=== PATIENT | female | born 1960 | race Caucasian/White ===

== ENCOUNTER 2017-02-08 14:52 | Emergency (ER) | payer MEDICAID ==
--- NOTE | 2017-02-08 16:03 | EDM.PDOC ---
ED HPI GENERAL MEDICAL PROBLEM - General Chief Complaint: Respiratory Problem Stated Complaint: SHORTNESS OF BREATH Time Seen by Provider: 02/08/17 15:40 Source of Information: Reports: Patient History Limitations: Reports: No Limitations - History of Present Illness INITIAL COMMENTS - FREE TEXT/NARRATIVE: 56-year-old female with severe emphysema has been without oxygen for the past for 5 days. She becomes somnolent when she uses oxygen. She has had several checks of the clinic by her primary providers and has a pulmonology consultation coming up on 26 February. No fevers or chills. She continues to smoke. She is basically in here to get blood gases which aren't able to be drawn at the clinic. She did use 1 L of oxygen overnight last night. Onset: Unknown/Unsure Severity: Moderate Associated Symptoms: Reports: Cough, Shortness of Breath. Denies: Fever/Chills , Headaches, Nausea/Vomiting, Weakness denies Pain Score (Numeric/FACES): 0 - Related Data Allergies Allergy/AdvReac Type Severity Reaction Status Date / Time No Known Allergies Allergy Verified 06/07/16 07:50 Home Meds: Home Meds NK [No Known Home Meds] 02/08/17 [History] Past Medical History Cardiovascular History: Reports: Other (See Below) Other Cardiovascular History: bilateral lower extremity edema. Respiratory History: Reports: Other (See Below) Other Respiratory History: panlobular emphysema, Hypoxia Other Gastrointestinal History: colon polyp Genitourinary History: Reports: Other (See Below) Other Genitourinary History: proteinuria Psychiatric History: Reports: Other (See Below) Other Psychiatric History: stress Endocrine/Metabolic History: Reports: Other (See Below) Other Endocrine/Metabolic History: polycthemia - Infectious Disease History Infectious Disease History: Reports: Chicken Pox - Past Surgical History GI Surgical History: Reports: Colonoscopy ED ROS GENERAL - Review of Systems Review Of Systems: See Below Constitutional: Reports: Weakness. Denies: Fever, Chills, Malaise HEENT: Reports: No Symptoms Respiratory: Reports: Shortness of Breath, Cough Cardiovascular: Denies: Chest Pain, Palpitations GI/Abdominal: Denies: Abdominal Pain, Nausea, Vomiting : Reports: No Symptoms Musculoskeletal: Reports: No Symptoms Neurological: Denies: Headache ED EXAM, GENERAL - Physical Exam Exam: See Below Exam Limited By: No Limitations General Appearance: Alert, No Apparent Distress, Anxious (Patient is very talkative, anxious, almost hypomanic) Respiratory/Chest: No Respiratory Distress, Lungs Clear, Decreased Breath Sounds (Diffuse decreased breath sounds but present to the bases bilaterally) Cardiovascular: Regular Rate, Rhythm, Tachycardia GI/Abdominal: Non-Tender Extremities: No Pedal Edema Neurological: Alert, Oriented Psychiatric: Anxious Skin Exam: Warm, Dry, Other (Some ruddiness to the distal extremities likely from chronic hypoxia) Course - Vital Signs Last Recorded V/S: Last Vital Signs Temp 97.5 F 02/08/17 16:45 Pulse 109 H 02/08/17 16:45 Resp 16 02/08/17 16:45 BP 136/92 H 02/08/17 16:45 Pulse Ox 89 L 02/08/17 16:45 - Orders/Labs/Meds Labs: Laboratory Tests 02/08/17 02/08/17 Range/Units 16:12 16:12 Puncture Site Rt.radial ABG pH 7.380 (7.350-7.450) ABG pCO2 52.7 H (35.0-42.0) mmHg ABG pO2 51.9 L (75.0-100.0) mmHg ABG HCO3 30.5 H (22.0-26.0) mmol/L ABG Total CO2 25.5 H (21.0-25.0) mmol/L ABG O2 Saturation 88.0 L (95.0-98.0) % ABG O2 Content 20.5 (15.0-23.0) %vol ABG Base Excess 4.1 mm/L ABG Hemoglobin 18.2 H (12.0-16.0) g/dL ABG Oxyhemoglobin 80.6 % ABG Carboxyhemoglobin 7.8 H (0.0-1.6) % ABG Methemoglobin 0.6 % Ronak Test Passed O2 Delivery Device Room air TSH, Ultra Sensitive 1.130 (0.358-3.740) uIU/mL - Re-Assessments/Exams Free Text/Narrative Re-Assessment/Exam: 02/10/17 07:12 ABGs were obtained on room air, O2 was 88, PCO2 52.7. PH was normal. She is a chronic CO2 retainer. Her options were discussed with her and her family for over 30 minutes. She will resume 1 L of oxygen overnight, will see pulmonology in 2 weeks as scheduled and return if she feels she is worsening. I strongly encouraged her to decrease her smoking and resume her Spiriva and other pulmonary medications as directed. Departure - Departure Time of Disposition: 16:55 Disposition: Home, Self-Care 01 Condition: Fair Clinical Impression: Emphysema lung Qualifiers: Emphysema type: panlobular Qualified Code(s): J43.1 - Panlobular emphysema - Discharge Information Instructions: Chronic Obstructive Pulmonary Disease Exacerbation, [id number] Referrals: Jose Linder MD [Primary Care Provider] - Forms: ED Department Discharge Care Plan Goals: Continue using low levels of oxygen supplementation, try to decrease smoking, and I would recommend your pulmonary medications as prescribed. Return if worsening or concerns.
[2017-02-08 16:53] VITALS: BP 136/92
== END 2017-02-08 16:54 | disposition home or self-care (01) ==
LOC: JP.ED 14:52
DX: J43.1 Panlobular emphysema (principal)
CPT/HCPCS: 36600; 82803; 84443; 99284; 99285

== ENCOUNTER 2017-03-22 20:14 | Emergency (ER) | payer MEDICAID ==
--- NOTE | 2017-03-22 21:45 | EDM.PDOC ---
<Aaron Mata - Last Filed: 03/23/17 06:50> ED HPI GENERAL MEDICAL PROBLEM - General Chief Complaint: General Stated Complaint: O2 DOWN/ NOT MAKING SENSE Time Seen by Provider: 03/22/17 21:00 Source of Information: Reports: Patient, Family (Sister daughter and other family members), Old Records, RN Notes Reviewed History Limitations: Reports: Altered Mental Status - History of Present Illness INITIAL COMMENTS - FREE TEXT/NARRATIVE: Brought in by sister, but other family members have also been with her today including both her son and daughter in more distant relatives Chief complaint Altered behavior History of present illness 56-year-old female who lives alone with her dog, history of COPD and emphysema and has been prescribed oxygen for home use Family members became increasing concerned over the last couple of months since 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 She's been largely remaining by herself , and her behavior has deteriorated. She is in particular showing very confusing behavior which has gotten worse today. There is also been significant weight loss and patient admits that she has not been eating and drinking as much. Patient makes a number of nonsensical statements when asked about why she doesn' t use her oxygen or why she is here. Family members report that she's been refusing to use her oxygen because she believes that she is 100%. She states that she's been talking to her father was been for a year, she' s been inattentive when people are speaking to her, unaware that they are talking to her, slow to respond at times. She's gone out to buy cigarettes and not remember that she had gone out. She locked her dog in the car today and denied this happened and was unaware that the dog was out of the house. She makes some statements that she is challenging the oxygen and also that she' s been for 3 days. No known psychiatric history in her or the family She has been known to use marijuana but no other drugs. She's not eaten for several days and has not days for at least 3 days. According to her sister who probably has the closest connection to her, she believes the patient's behavior has deteriorated since April of last year. She has been largely noncommunicative with her son,, "drove them away", strongly objected to his wedding which happened last - Related Data Allergies Allergy/AdvReac Type Severity Reaction Status Date / Time coconut Allergy Cannot Verified 03/22/17 22:51 Remember levofloxacin Allergy Cannot Verified 03/22/17 22:51 Remember Home Meds: Home Meds Albuterol Sulfate [Albuterol Sulfate] 3 ml NEB Q4H PRN 03/22/17 [History] Albuterol Sulfate [Ventolin Hfa] 1 - 2 puff INH Q4H PRN 03/22/17 [History] Furosemide 1 tab PO DAILY 03/22/17 [History] Mometasone/Formoterol [Dulera 200-5 MCG] 2 puff INH BID 03/22/17 [History] Tiotropium [Spiriva Handihaler] 1 cap INH DAILY 03/22/17 [History] Past Medical History Cardiovascular History: Reports: Other (See Below) Other Cardiovascular History: bilateral lower extremity edema. 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: Psychiatric History: Reports: Other (See Below) Other Psychiatric History: stress Endocrine/Metabolic History: Reports: Other (See Below) Other Endocrine/Metabolic History: polycthemia - Infectious Disease History Infectious Disease History: Reports: Chicken Pox - Past Surgical History GI Surgical History: Reports: Colonoscopy Female Surgical History: Reports: Section (twice), Other (See Below ) (2 children by in vitro fertilization) Social & Family History - Tobacco Use Smoking Status *Q: Heavy Tobacco Smoker Years of Tobacco use: 40 Packs/Tins Daily: 1 Used Tobacco, but Quit: No - Caffeine Use Caffeine Use: Reports: Coffee - Recreational Drug Use Recreational Drug Use: Yes Recreational Drug Type: Reports: Marijuana/Hashish ED ROS GENERAL - Review of Systems Review Of Systems: Unable To Obtain (Due to altered behavior and inconsistent answers sometimes saying she has pain then denying it) ED EXAM, GENERAL - Physical Exam Exam: See Below Exam Limited By: Altered Mental Status General Appearance: Alert, Moderate Distress (Mostly concerned that she wants to leave), Other (Sandeep disheveled with strong body odor present, she is tachycardic at 134, no difficulty speaking or breathing, afebrile, O2 saturation 87-88% on room air, appears cachetic) Eye Exam: Bilateral Eye: EOMI, Normal Inspection Ears: Normal External Exam Nose: Normal Inspection Throat/Mouth: Normal Voice, Other (Dry mouth) Head: Atraumatic Neck: Normal Inspection Respiratory/Chest: No Respiratory Distress, Lungs Clear, Normal Breath Sounds, No Accessory Muscle Use Cardiovascular: Regular Rate, Rhythm, No Murmur, Tachycardia GI/Abdominal: Normal Bowel Sounds, Soft, Non-Tender Extremities: Normal Inspection, Normal Capillary Refill. No: Pedal Edema Neurological: Alert, No Motor/Sensory Deficits, Memory Loss Recent Events, Other (Initially disoriented to place and time) Psychiatric: Flat Affect, Other (Responses are sometimes delayed, patient appears agitated and restless, limited comprehension) Skin Exam: Warm, Dry, Normal Color, No Rash Lymphatic: No Adenopathy Course - Vital Signs Last Recorded V/S: Last Vital Signs Temp 99.1 F 03/22/17 20:24 Pulse 110 H 03/22/17 23:01 Resp 20 03/22/17 23:01 BP 129/79 03/22/17 23:01 Pulse Ox 90 L 03/22/17 23:02 - Orders/Labs/Meds Labs: Laboratory Tests 03/22/17 03/22/17 03/22/17 Range/Units 21:14 21:14 21:14 WBC 6.1 (4.5-11.0) K/uL RBC 6.58 H (3.30-5.50) M/uL Hgb 19.1 H* (12.0-15.0) g/dL Hct 60.1 H (36.0-48.0) % MCV 91 (80-98) fL MCH 29 (27-31) pg MCHC 32 (32-36) % Plt Count 199 (150-400) K/uL Sodium 138 L (140-148) mmol/L Potassium 4.2 (3.6-5.2) mmol/L Chloride 101 (100-108) mmol/L Carbon Dioxide 30 (21-32) mmol/L Anion Gap 11.2 (5.0-14.0) mmol/L BUN 10 (7-18) mg/dL Creatinine 0.6 (0.6-1.0) mg/dL Est Cr Clr Drug Dosing 79.94 mL/min Estimated GFR (MDRD) > 60 (>60) Glucose 102 (74-106) mg/dL Calcium 9.2 (8.5-10.1) mg/dL Total Bilirubin 0.9 (0.2-1.0) mg/dL AST 14 L (15-37) U/L ALT 19 (12-78) U/L Alkaline Phosphatase 70 (46-116) U/L Total Protein 6.7 (6.4-8.2) g/dL Albumin 3.6 (3.4-5.0) g/dL Globulin 3.1 (2.3-3.5) g/dL Albumin/Globulin Ratio 1.2 (1.2-2.2) TSH, Ultra Sensitive 3.019 (0.358-3.740) uIU/mL Urine Color Urine Appearance Urine pH (4.5-8.0) Ur Specific [place] (1.008-1.030) Urine Protein (NEGATIVE) mg/dL Urine Glucose (UA) (NEGATIVE) mg/dL Urine Ketones (NEGATIVE) mg/dL Urine Occult Blood (NEGATIVE) Urine Nitrite (NEGATIVE) Urine Bilirubin (NEGATIVE) Urine Urobilinogen (NORMAL) mg/dL Ur Leukocyte Esterase (NEGATIVE) Urine RBC (0-5) Urine WBC (0-5) Ur Epithelial Cells Amorphous Sediment Urine Bacteria Urine Mucus Urine HCG, Qual Salicylates (2.0-20.0) mg/dL Urine Opiates Screen (NEGATIVE) Ur Oxycodone Screen (NEGATIVE) Urine Methadone Screen (NEGATIVE) Ur Propoxyphene Screen (NEGATIVE) Acetaminophen 0.0 L (10.0-30.0) ug/mL Ur Barbiturates Screen (NEGATIVE) Ur Tricyclics Screen (NEGATIVE) Ur Phencyclidine Scrn (NEGATIVE) Ur Amphetamine Screen (NEGATIVE) U Methamphetamines Scrn (NEGATIVE) Urine MDMA Screen (NEGATIVE) U Benzodiazepines Scrn (NEGATIVE) U Cocaine Metab Screen (NEGATIVE) U Marijuana (THC) Screen (NEGATIVE) Ethyl Alcohol mg/dL 03/22/17 03/22/17 03/22/17 Range/Units 21:14 21:14 21:19 WBC (4.5-11.0) K/uL RBC (3.30-5.50) M/uL Hgb (12.0-15.0) g/dL Hct (36.0-48.0) % MCV (80-98) fL MCH (27-31) pg MCHC (32-36) % Plt Count (150-400) K/uL Sodium (140-148) mmol/L Potassium (3.6-5.2) mmol/L Chloride (100-108) mmol/L Carbon Dioxide (21-32) mmol/L Anion Gap (5.0-14.0) mmol/L BUN (7-18) mg/dL Creatinine (0.6-1.0) mg/dL Est Cr Clr Drug Dosing mL/min Estimated GFR (MDRD) (>60) Glucose (74-106) mg/dL Calcium (8.5-10.1) mg/dL Total Bilirubin (0.2-1.0) mg/dL AST (15-37) U/L ALT (12-78) U/L Alkaline Phosphatase (46-116) U/L Total Protein (6.4-8.2) g/dL Albumin (3.4-5.0) g/dL Globulin (2.3-3.5) g/dL Albumin/Globulin Ratio (1.2-2.2) TSH, Ultra Sensitive (0.358-3.740) uIU/mL Urine Color Yellow Urine Appearance Clear Urine pH 8.0 (4.5-8.0) Ur Specific [place] 1.010 (1.008-1.030) Urine Protein 30 H (NEGATIVE) mg/dL Urine Glucose (UA) Normal (NEGATIVE) mg/dL Urine Ketones 15 H (NEGATIVE) mg/dL Urine Occult Blood Negative (NEGATIVE) Urine Nitrite Negative (NEGATIVE) Urine Bilirubin Negative (NEGATIVE) Urine Urobilinogen Normal (NORMAL) mg/dL Ur Leukocyte Esterase Negative (NEGATIVE) Urine RBC 0-5 (0-5) Urine WBC 0-5 (0-5) Ur Epithelial Cells Few Amorphous Sediment Not seen Urine Bacteria Few Urine Mucus Many Urine HCG, Qual Salicylates 3.0 (2.0-20.0) mg/dL Urine Opiates Screen (NEGATIVE) Ur Oxycodone Screen (NEGATIVE) Urine Methadone Screen (NEGATIVE) Ur Propoxyphene Screen (NEGATIVE) Acetaminophen (10.0-30.0) ug/mL Ur Barbiturates Screen (NEGATIVE) Ur Tricyclics Screen (NEGATIVE) Ur Phencyclidine Scrn (NEGATIVE) Ur Amphetamine Screen (NEGATIVE) U Methamphetamines Scrn (NEGATIVE) Urine MDMA Screen (NEGATIVE) U Benzodiazepines Scrn (NEGATIVE) U Cocaine Metab Screen (NEGATIVE) U Marijuana (THC) Screen (NEGATIVE) Ethyl Alcohol < 3 mg/dL 03/22/17 03/23/17 Range/Units 21:19 00:01 WBC (4.5-11.0) K/uL RBC (3.30-5.50) M/uL Hgb (12.0-15.0) g/dL Hct (36.0-48.0) % MCV (80-98) fL MCH (27-31) pg MCHC (32-36) % Plt Count (150-400) K/uL Sodium (140-148) mmol/L Potassium (3.6-5.2) mmol/L Chloride (100-108) mmol/L Carbon Dioxide (21-32) mmol/L Anion Gap (5.0-14.0) mmol/L BUN (7-18) mg/dL Creatinine (0.6-1.0) mg/dL Est Cr Clr Drug Dosing mL/min Estimated GFR (MDRD) (>60) Glucose (74-106) mg/dL Calcium (8.5-10.1) mg/dL Total Bilirubin (0.2-1.0) mg/dL AST (15-37) U/L ALT (12-78) U/L Alkaline Phosphatase (46-116) U/L Total Protein (6.4-8.2) g/dL Albumin (3.4-5.0) g/dL Globulin (2.3-3.5) g/dL Albumin/Globulin Ratio (1.2-2.2) TSH, Ultra Sensitive (0.358-3.740) uIU/mL Urine Color Urine Appearance Urine pH (4.5-8.0) Ur Specific [place] (1.008-1.030) Urine Protein (NEGATIVE) mg/dL Urine Glucose (UA) (NEGATIVE) mg/dL Urine Ketones (NEGATIVE) mg/dL Urine Occult Blood (NEGATIVE) Urine Nitrite (NEGATIVE) Urine Bilirubin (NEGATIVE) Urine Urobilinogen (NORMAL) mg/dL Ur Leukocyte Esterase (NEGATIVE) Urine RBC (0-5) Urine WBC (0-5) Ur Epithelial Cells Amorphous Sediment Urine Bacteria Urine Mucus Urine HCG, Qual Negative Salicylates (2.0-20.0) mg/dL Urine Opiates Screen Negative (NEGATIVE) Ur Oxycodone Screen Negative (NEGATIVE) Urine Methadone Screen Negative (NEGATIVE) Ur Propoxyphene Screen Negative (NEGATIVE) Acetaminophen (10.0-30.0) ug/mL Ur Barbiturates Screen Negative (NEGATIVE) Ur Tricyclics Screen Negative (NEGATIVE) Ur Phencyclidine Scrn Negative (NEGATIVE) Ur Amphetamine Screen Negative (NEGATIVE) U Methamphetamines Scrn Negative (NEGATIVE) Urine MDMA Screen Negative (NEGATIVE) U Benzodiazepines Scrn Negative (NEGATIVE) U Cocaine Metab Screen Negative (NEGATIVE) U Marijuana (THC) Screen Positive H (NEGATIVE) Ethyl Alcohol mg/dL - Re-Assessments/Exams Free Text/Narrative Re-Assessment/Exam: 03/22/17 21:47 56-year-old female with altered behavior, her mild degree of hypoxemia is insufficient to explain her delusions forgetfulness and irrational speech and thought patterns. She may be suffering from some degree of psychosis or have an acute delirium. She may be suffering from some degree of dehydration and certainly from some malnutrition. Psychiatric placement would likely be needed Lab tests ordered indicated elevated hemoglobin 19.1 but normal white cell count 03/23/17 01:33 urine drug screen positive for marijuana, she has used marijuana for a number of years, negative for methamphetamines or other stimulants Placement indicated in view of her delusions, abnormal behavior, in the room she is talking to herself and to God She has neglected self In my opinion she is in danger of harm to herself and needs psychiatric evaluation 72 hour hold completed Psychiatric admission will be arranged 03/23/17 06:50 during her stay she is talking loudly to God attempted to elope transferred to Dr Chang pending disposition/transfer Departure - Departure Disposition: Home, Self-Care 01 Condition: Undetermined Clinical Impression: Acute psychosis, COPD with hypoxia Emphysema lung Qualifiers: Emphysema type: panlobular Qualified Code(s): J43.1 - Panlobular emphysema - Discharge Information Instructions: Chronic Obstructive Pulmonary Disease, [id number] Referrals: Jose Linder MD [Primary Care Provider] - Care Plan Goals: You need to wear supplemental oxygen at all times. You may start with 1 L initially but will eventually likely need 2-3 L of oxygen at times. You also need to restart your Spiriva and Dulera as promised. You also need to make your best effort to decrease or stop smoking. If you do not follow these medical recommendations, he will become hypoxic, confused and unable to care for yourself and will need long-term nursing care. <Jose Chang - Last Filed: 03/23/17 16:03> Course - Re-Assessments/Exams Free Text/Narrative Re-Assessment/Exam: 03/23/17 13:02 After extensive searching we could not find placement for the patient because it is not mental illness is much as it is chronic hypoxia. We reviewed her medical records and she has a medical indication that is a very significant in need of 24-hour supplemental oxygen. This was discussed with the patient and her family thoroughly for almost 2 hours. She agreed to wear oxygen at all times and restart her Spiriva and Dulera as recommended by the hat and cap parts cutter hand. She understands that if she does not comply with the medical requirements, she will become severely hypoxic, confused, unable to care for herself and will need a commitment for chronic nursing care. Departure - Departure Time of Disposition: 14:25 Condition: Fair
[2017-03-22 23:02] VITALS: BP 129/79
== END 2017-03-23 14:25 | disposition home or self-care (01) ==
LOC: JP.ED 20:14
DX: F23 Brief psychotic disorder (principal); J43.1 Panlobular emphysema; J44.9 Chronic obstructive pulmonary disease, unspecified; F17.210 Nicotine dependence, cigarettes, uncomplicated; Z91.018 Allergy to other foods; Z88.1 Allergy status to other antibiotic agents; Z79.899 Other long term (current) drug therapy
CPT/HCPCS: 36415; 80053; 80305; 81001; 81025; 84443; 85027; 99284; G0480

== ENCOUNTER 2017-03-28 12:31 | Emergency (ER) | payer MEDICAID ==
--- NOTE | 2017-03-28 13:28 | CT ---
Head wo Cont HISTORY: Confusion. Hallucinations. COMPARISON: None TECHNIQUE: Noncontrast enhanced axial cuts were obtained of the brain. Total DLP: 710. FINDINGS:There is no cerebral or subdural hemorrhage. There is no mass effect or edema. The ventricle s and CSF spaces are appropriate for age. No space occupying lesions are demonstrated. The orbital st ructures are unremarkable. The sinuses demonstrate normal aeration. IMPRESSION: Negative exam.
--- NOTE | 2017-03-28 14:00 | EDM.PDOCBH ---
ED HPI GENERAL MEDICAL PROBLEM - General Chief Complaint: Behavioral/Psych Stated Complaint: [place]ERO VIA NORTH Time Seen by Provider: 03/28/17 13:00 Source of Information: Reports: EMS, Family History Limitations: Reports: Altered Mental Status, Uncooperative - History of Present Illness INITIAL COMMENTS - FREE TEXT/NARRATIVE: 56-year-old female is a vulnerable adult as she just cannot care for herself at home. We saw her last week and she was suffering chronic hallucinations and after an extensive attempt at placement the family agreed to let the patient go home as long as she agreed to use her oxygen and her COPD medications. She did not comply however and they went into check on her today, the home is filthy, she hasn't bathed, her pet isn't being taken care of and she continues to smoke heavy amounts of cigarettes. The ambulance was called and she again was brought in for evaluation. She is adamant that there is nothing wrong with her, she does not need oxygen. She is having visual hallucinations, talking to people that aren't present and was talking to her mother about a leiva in their backyard which doesn't exist. Her family is insisting she be admitted for care. Onset: Gradual Duration: Chronic Severity: Severe Associated Symptoms: Reports: Shortness of Breath, Weakness, Other (Patient is not eating well, losing weight) - Related Data Allergies Allergy/AdvReac Type Severity Reaction Status Date / Time coconut Allergy Cannot Verified 03/22/17 22:51 Remember levofloxacin Allergy Cannot Verified 03/22/17 22:51 Remember Home Meds: Home Meds Albuterol Sulfate [Albuterol Sulfate] 3 ml NEB Q4H PRN 03/22/17 [History] Albuterol Sulfate [Ventolin Hfa] 1 - 2 puff INH Q4H PRN 03/22/17 [History] Furosemide 1 tab PO DAILY 03/22/17 [History] Mometasone/Formoterol [Dulera 200-5 MCG] 2 puff INH BID 03/22/17 [History] Tiotropium [Spiriva Handihaler] 1 cap INH DAILY 03/22/17 [History] Past Medical History Cardiovascular History: Reports: Other (See Below) Other Cardiovascular History: bilateral lower extremity edema. 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: Psychiatric History: Reports: Anxiety, Emotional Problems, Psychosis, Other ( See Below) Other Psychiatric History: stress Endocrine/Metabolic History: Reports: Other (See Below) Other Endocrine/Metabolic History: polycthemia - Infectious Disease History Infectious Disease History: Reports: Chicken Pox - Past Surgical History GI Surgical History: Reports: Colonoscopy Female Surgical History: Reports: Section Social & Family History - Tobacco Use Smoking Status *Q: Heavy Tobacco Smoker Years of Tobacco use: 40 Packs/Tins Daily: 1 Used Tobacco, but Quit: No - Caffeine Use Caffeine Use: Reports: Coffee - Recreational Drug Use Recreational Drug Use: Yes Recreational Drug Type: Reports: Marijuana/Hashish ED ROS GENERAL - Review of Systems Review Of Systems: Unable To Obtain (Patient is noncompliant, answers negative to anything asked) ED EXAM, BEHAVIORAL HEALTH - Physical Exam Exam: See Below Exam Limited By: Altered Mental Status (Somewhat confused, not cooperative) General Appearance: Alert, No Apparent Distress Eye Exam: Bilateral Eye: EOMI Respiratory/Chest: No Respiratory Distress, Decreased Breath Sounds (Diffuse decreased breath sounds) Cardiovascular: Regular Rate, Rhythm Extremities: Other (Trace of lower extremity edema, symmetric) Neurological: Alert, Oriented x 3 Psychiatric: Tearful, Uncooperative Skin Exam: Warm, Dry COURSE, BEHAVIORAL HEALTH COMP - Course Vital Signs: Last Vital Signs Temp 98.2 F 03/28/17 17:04 Pulse 107 H 03/28/17 17:04 Resp 16 03/28/17 17:04 BP 133/78 03/28/17 17:04 Pulse Ox 87 L 03/28/17 17:04 Orders, Labs, Meds: Laboratory Tests 03/28/17 03/28/17 03/28/17 Range/Units 12:37 12:37 12:37 WBC 5.1 (4.5-11.0) K/uL RBC 6.58 H (3.30-5.50) M/uL Hgb 19.5 H* (12.0-15.0) g/dL Hct 59.4 H (36.0-48.0) % MCV 90 (80-98) fL MCH 30 (27-31) pg MCHC 33 (32-36) % Plt Count 156 (150-400) K/uL Neut % (Auto) 67 H (36-66) % Lymph % (Auto) 18 L (24-44) % Gilliam % (Auto) 12 H (2-6) % Eos % (Auto) 2 (2-4) % Baso % (Auto) 1 (0-1) % Puncture Site Lt brachial ABG pH 7.452 H (7.350-7.450) ABG pCO2 43.1 H (35.0-42.0) mmHg ABG pO2 61.1 L (75.0-100.0) mmHg ABG HCO3 29.6 H (22.0-26.0) mmol/L ABG Total CO2 23.8 (21.0-25.0) mmol/L ABG O2 Saturation 93.2 L (95.0-98.0) % ABG O2 Content 24.1 H (15.0-23.0) %vol ABG Base Excess 5.3 mm/L ABG Hemoglobin 19.5 H (12.0-16.0) g/dL ABG Oxyhemoglobin 88.3 % ABG Carboxyhemoglobin 4.8 H (0.0-1.6) % ABG Methemoglobin 0.5 % Ronak Test None O2 Delivery Device Room air Sodium 133 L (140-148) mmol/L Potassium 5.2 (3.6-5.2) mmol/L Chloride 100 (100-108) mmol/L Carbon Dioxide 26 (21-32) mmol/L Anion Gap 12.2 (5.0-14.0) mmol/L BUN 11 (7-18) mg/dL Creatinine 0.5 L (0.6-1.0) mg/dL Est Cr Clr Drug Dosing 100.14 mL/min Estimated GFR (MDRD) > 60 (>60) Glucose 138 H (74-106) mg/dL Calcium 8.9 (8.5-10.1) mg/dL Re-Assessment/Re-Exam: ABGs were obtained and revealed an O2 saturation of 93, O2 of only 61 and this was just after 3 L of O2 nasal cannula was removed 5 minutes earlier. White count is normal but hemoglobin is 19.5. I had a long discussion about the patient with the professor of social work who did her consult a month ago, psychiatry, the hospitalist service and the family. This patient is unable to return to home and is unable to care for herself. The disposition difficulty is to find someone who can treat her with oxygen and her psychiatric issues simultaneously. I also had further consultations with the inpatient psychiatric physician lean consultant for [facility]. The recommendation was to titrate her with antipsychotics as an inpatient while treating her medical conditions. I discussed this with our hospitalist here and he was uncomfortable with trying to titrate psychiatric medications while treating the serious medical conditions. Fortunately Dr. Millan , hospitalist at [facility] agreed to see the patient. The patient on discharged was willing to try to cooperate with the physicians in [place] but our experience with this patient is that she changes her mind quickly. Departure - Departure Time of Disposition: 17:04 Disposition: DC/Tfer to Other 70 Condition: Fair Clinical Impression: COPD with hypoxia, Hallucinations - Discharge Information Referrals: Jose Linder MD [Primary Care Provider] - Forms: ED Department Discharge Care Plan Goals: Patient will be transferred via EMS to [facility] in [place] for inpatient admission for dual treatment of COPD and ongoing waxing and waning psychosis and hallucinations.
[2017-03-28 17:05] VITALS: BP 133/78
== END 2017-03-28 16:59 | disposition other institution (70) ==
LOC: JP.ED 12:31
DX: J44.9 Chronic obstructive pulmonary disease, unspecified (principal); R09.02 Hypoxemia; R44.1 Visual hallucinations; F17.210 Nicotine dependence, cigarettes, uncomplicated; Z79.899 Other long term (current) drug therapy; Z88.1 Allergy status to other antibiotic agents; Z91.018 Allergy to other foods; Z99.81 Dependence on supplemental oxygen
CPT/HCPCS: 36600; 70450; 70450-26; 80048; 82803; 85025; 99284; 99285-25

== ENCOUNTER 2018-06-24 13:07 | Observation (INO) | payer MEDICAID ==
--- NOTE | 2018-06-24 14:33 | EDM.PDOC ---
ED HPI GENERAL MEDICAL PROBLEM - General Chief Complaint: General Stated Complaint: VIA NORTH Time Seen by Provider: 06/24/18 14:28 Source of Information: Reports: Family History Limitations: Reports: Altered Mental Status - History of Present Illness INITIAL COMMENTS - FREE TEXT/NARRATIVE: pt arrived confused and non verbal . Her o2 sats are low and she has been running a high co2. She has a ejection fraction at [facility] of 15 %. She has the known diagnosis of schzophrenia. . She refuses to take her meds. Family wishes her to have comfort cares. Her brother is power of attayla and he is in agreement with this plan. Onset: Gradual, Other (pt has become more and more confused. ) Duration: Hour(s): Location: Reports: Head, Chest Associated Symptoms: Reports: Confusion, Cough, Shortness of Breath, Other ( low o2 sats. ) - Related Data Allergies Allergy/AdvReac Type Severity Reaction Status Date / Time coconut Allergy Cannot Verified 06/24/18 13:15 Remember levofloxacin Allergy Cannot Verified 06/24/18 13:15 Remember Home Meds: Home Meds Albuterol Sulfate 3 ml NEB Q4H PRN 03/22/17 [History] Albuterol Sulfate [Ventolin Hfa] 1 - 2 puff INH Q4H PRN 03/22/17 [History] Furosemide 1 tab PO DAILY PRN 03/22/17 [History] Mometasone/Formoterol [Dulera 200-5 MCG] 2 puff INH BID 03/22/17 [History] Tiotropium [Spiriva Handihaler] 1 cap INH DAILY 03/22/17 [History] Past Medical History Cardiovascular History: Reports: Heart Failure, Other (See Below) Other Cardiovascular History: bilateral lower extremity edema. 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: Psychiatric History: Reports: Anxiety, Emotional Problems, Psychosis, Schizophrenia, Other (See Below) Other Psychiatric History: stress Endocrine/Metabolic History: Reports: Other (See Below) Other Endocrine/Metabolic History: polycthemia - Infectious Disease History Infectious Disease History: Reports: Chicken Pox - Past Surgical History Cardiovascular Surgical History: Reports: Other (See Below) Other Cardiovascular Surgeries/Procedures: angiogram in May Respiratory Surgical History: Reports: None GI Surgical History: Reports: Colonoscopy Female Surgical History: Reports: Section Endocrine Surgical History: Reports: None Social & Family History - Family History Family Medical History: Noncontributory - Tobacco Use Smoking Status *Q: Current Every Day Smoker Years of Tobacco use: 15 Packs/Tins Daily: 1 - Caffeine Use Caffeine Use: Reports: Coffee - Recreational Drug Use Recreational Drug Use: Yes Recreational Drug Type: Reports: Marijuana/Hashish ED ROS GENERAL - Review of Systems Review Of Systems: See Below Constitutional: Reports: Weakness HEENT: Reports: No Symptoms Respiratory: Reports: Shortness of Breath, Other (low o2 sats. ) Cardiovascular: Reports: Other ( chf. She has a ejection fraction of 15%) Endocrine: Reports: No Symptoms GI/Abdominal: Reports: No Symptoms : Reports: No Symptoms Musculoskeletal: Reports: No Symptoms Skin: Reports: No Symptoms ED EXAM, GENERAL - Physical Exam Exam: See Below Free Text/Narrative:: pt has had increased confusion and has refused all therapy. The family wish her to be admitted to hospice and have her in the half-way to do comfort cares. Exam Limited By: Altered Mental Status General Appearance: Alert, Moderate Distress, Other (pupils equal and reactive. ) Ears: Normal TMs Nose: Normal Inspection Throat/Mouth: Normal Inspection Head: Atraumatic Neck: Normal Inspection Respiratory/Chest: Decreased Breath Sounds, Rales, Wheezing Cardiovascular: Regular Rate, Rhythm GI/Abdominal: Soft, Non-Tender (Female) Exam: Deferred Rectal (Female) Exam: Deferred Extremities: Pedal Edema, Other (marked edema plus 3) Neurological: Alert, Oriented, Normal Cognition Psychiatric: Flat Affect, Other (pt is nonverbal) Course - Vital Signs Last Recorded V/S: Last Vital Signs Temp 36.7 C 06/24/18 13:40 Pulse 136 H 06/24/18 13:58 Resp 22 H 06/24/18 13:40 BP 147/96 H 06/24/18 13:40 Pulse Ox 89 L 06/24/18 13:58 - Re-Assessments/Exams Free Text/Narrative Re-Assessment/Exam: 06/24/18 15:53 after a long discussion with the family they wish only to have comfort cares for the pt. They did not want labs or other interventions. Departure - Departure Time of Disposition: 17:51 Disposition: Admitted As Inpatient 66 Condition: Poor Clinical Impression: COPD (chronic obstructive pulmonary disease), Congestive cardiac failure, Low O2 saturation, Schizo affective schizophrenia, Confusion - Discharge Information Referrals: PCP,None [Primary Care Provider] - Forms: ED Department Discharge Care Plan Goals: admit to Dr albert.
--- NOTE | 2018-06-24 19:07 | PCM.HP ---
H&P History of Present Illness - General Date of Service: 06/24/18 Admit Problem/Dx: Admission Diagnosis/Problem Admission Diagnosis/Problem Encounter for palliative care Source of Information: Patient, Family, Provider History Limitations: Reports: Uncooperative (pt did intermittently answer questions, often did not resond ) - History of Present Illness Initial Comments - Free Text/Narative: Nicki presents to the emergency room today with her mother and sister. The patient does intermittently respond to questions but for the most part ignores questioning. She has been living at home alone and has not been taking medications or using oxygen as has been previously recommended. She has had multiple admissions to the hospital over the past year and often ends up in the intensive care unit.. She has severe oxygen dependent COPD but refuses to use oxygen. Her most recent PCO2 measurement was greater than 90. She has severe systolic congestive heart failure with an ejection fraction of less than 15%. She does not regularly take her medications. She does not eat. She sits at home smokes. She is not able to make her own decisions at this time and does have a power of assistant county attorney. Family has elected to transition to comfort cares. They are not able to provide sufficient care at home. The hope is that she can be admitted for shelter placement and comfort cares. Patient currently reports that she feels short of breath and tired. She has no she's had any fevers. She doesn't report chest pain or abdominal pain. No workup was undertaken and the emergency room because of the desire for palliative care. The patient will be admitted for observation. - Related Data Allergies/Adverse Reactions: Allergies Allergy/AdvReac Type Severity Reaction Status Date / Time coconut Allergy Cannot Verified 06/24/18 13:15 Remember levofloxacin Allergy Cannot Verified 06/24/18 13:15 Remember Home Medications: Home Meds Albuterol Sulfate 3 ml NEB Q4H PRN 03/22/17 [History] Albuterol Sulfate [Ventolin Hfa] 1 - 2 puff INH Q4H PRN 03/22/17 [History] Furosemide 1 tab PO DAILY PRN 03/22/17 [History] Mometasone/Formoterol [Dulera 200-5 MCG] 2 puff INH BID 03/22/17 [History] Tiotropium [Spiriva Handihaler] 1 cap INH DAILY 03/22/17 [History] Past Medical History Cardiovascular History: Reports: Heart Failure, Other (See Below) Other Cardiovascular History: bilateral lower extremity edema. 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: Psychiatric History: Reports: Anxiety, Emotional Problems, Psychosis, Schizophrenia, Other (See Below) Other Psychiatric History: stress Endocrine/Metabolic History: Reports: Other (See Below) Other Endocrine/Metabolic History: polycthemia - Infectious Disease History Infectious Disease History: Reports: Chicken Pox - Past Surgical History Cardiovascular Surgical History: Reports: Other (See Below) Other Cardiovascular Surgeries/Procedures: angiogram in May Respiratory Surgical History: Reports: None GI Surgical History: Reports: Colonoscopy Female Surgical History: Reports: Section Endocrine Surgical History: Reports: None Social & Family History - Family History Family Medical History: Noncontributory - Tobacco Use Smoking Status *Q: Current Every Day Smoker Years of Tobacco use: 15 Packs/Tins Daily: 1 - Caffeine Use Caffeine Use: Reports: Coffee - Alcohol Use Alcohol Use History: No - Recreational Drug Use Recreational Drug Use: Yes Recreational Drug Type: Reports: Marijuana/Hashish H&P Review of Systems - Review of Systems: Review Of Systems: See Below Free Text/Narrative: A complete 12 point review of systems was obtained. Pertinent positives and negatives are noted in the history of present illness. All other systems were reviewed and were negative except as noted. Exam - Exam Exam: See Below - Vital Signs Vital Signs: Last Vital Signs Temp 36.7 C 06/24/18 13:40 Pulse 136 H 06/24/18 13:58 Resp 22 H 06/24/18 13:40 BP 147/96 H 06/24/18 13:40 Pulse Ox 89 L 06/24/18 13:58 - Exam Quality Assessment: No: Supplemental Oxygen General: Alert, Cooperative, Mild Distress (Increased work of breathing), Other (Patient appears very malnourished). No: Oriented HEENT: Conjunctiva Clear. No: Mucosa Moist & [place] (dry), Scleral Icterus Neck: Supple. No: Lymphadenopathy Lungs: Wheezing (Moderate expiratory on the right side), Other (Severe impairment of airflow and pursed lip breathing). No: Normal Respiratory Effort (Increased work of breathing) Cardiovascular: Regular Rhythm, Tachycardia. No: Systolic Murmur GI/Abdominal Exam: Soft, Non-Tender, No Distention Back Exam: Normal Inspection, Full Range of Motion Extremities: Pedal Edema (Pitting edema to the knee bilaterally). No: Increased Warmth Skin: Warm, Cool, Other (Cyanosis of hands and feet) Neuro Extensive - Mental Status: Alert, Slow Response to Commands. No: Oriented x3 Neuro Extensive - Motor, Sensory, Reflexes: No: Dysarthria, Abnormal Motor, Tremor Psychiatric: Alert, Anxious *Q Meaningful Use (ADM) - VTE Risk Assess *Q Each Risk Factor Represents 1 Point: Age 41 - 59 years, Swollen Legs, Current, Congestive heart failure (CHF), Abnormal Pulmonary Function (COPD) Total Score 1 Point Risk Factors: 4 Each Risk Factor Represents 2 Points: None Total Score 2 Point Risk Factors: 0 Each Risk Factor Represents 3 Points: None Total Score 3 Point Risk Factors: 0 Each Risk Factor Represents 5 Points: None Total Score 5 Point Risk Factors: 0 Venous Thromboembolism Risk Factor Score *Q: 4 - Problem List (1) Systolic congestive heart failure, NYHA class 4 SNOMED Code(s): 466543380, 543619267, 110587081 ICD Code: I50.20 - UNSPECIFIED SYSTOLIC (CONGESTIVE) HEART FAILURE Status: Acute Current Visit: Yes Qualifiers: Congestive heart failure chronicity: chronic Qualified Code(s): I50.22 - Chronic systolic (congestive) heart failure (2) COPD (chronic obstructive pulmonary disease) SNOMED Code(s): 16046933 ICD Code: J44.9 - CHRONIC OBSTRUCTIVE PULMONARY DISEASE, UNSPECIFIED Status : Chronic Current Visit: Yes Qualifiers: COPD type: emphysema Emphysema type: unspecified Qualified Code(s): J43.9 - Emphysema, unspecified (3) Emphysema of lung SNOMED Code(s): 81445793 ICD Code: J43.9 - EMPHYSEMA, UNSPECIFIED Status: Chronic Current Visit: Yes Qualifiers: Emphysema type: unspecified Qualified Code(s): J43.9 - Emphysema, unspecified (4) Chronic respiratory failure with hypoxia and hypercapnia SNOMED Code(s): 32007217, 700213231 ICD Code: J96.11 - CHRONIC RESPIRATORY FAILURE WITH HYPOXIA; J96.12 - CHRONIC RESPIRATORY FAILURE WITH HYPERCAPNIA Status: Chronic Current Visit: Yes (5) Schizo affective schizophrenia SNOMED Code(s): 454351205 ICD Code: F25.0 - SCHIZOAFFECTIVE DISORDER, BIPOLAR TYPE Status: Chronic Current Visit: Yes Problem List Initiated/Reviewed/Updated: Yes Orders Last 24hrs: Active Orders 24 hr Category Date Time Status Patient Status Manage Transfer [TRANSFER] Routine ADT 06/24/18 18:55 Ordered Resuscitation Status Routine Resus Stat 06/24/18 18:57 Ordered Assessment/Plan Comment:: ASSESSMENT AND PLAN - Encounter for palliative care - patient has been completely noncompliant with recommended medical treatment including medications, follow-up and oxygen at home. She has had severe damage to lungs and heart because of her noncompliance. Her brother is the power of assistant county attorney and the decision has been made for her to transition to comfort cares. Family is unable to provide care for her anymore at home. The hope is that she can be admitted to the shelter with hospice and comfort cares. The patient reports understanding that not receiving treatment for the conditions listed below will likely lead to her in the near future. -Morphine for air hunger -Lorazepam for anxiety Severe systolic congestive heart failure, NYHA class IV - symptoms at rest and severe with any exertion. Known ejection fraction less than 15% from recent hospital visit to [facility] in [place]. -Continue diuretic if patient will allow Severe COPD with emphysema - Complicated by chronic respiratory failure including hypoxia and hypercapnia. His oxygen saturations in the 60s on arrival and most recent PCO2 at [facility] was greater than 90. Patient will not wear any supplemental oxygen. -Tiotropium -Nebs as needed Tobacco dependence - No interest in quitting. Nicotine patch will be offered. Maintenance issues - - DVT prophylaxis - Comfort cares - GI prophylaxis - Comfort cares - Nutrition - low sodium - Camejo catheter - not indicated CODE STATUS - DNI/DNR with comfort cares Admission justification - patient will be referred observation for shelter placement Disposition - I would anticipate discharge to the shelter after the hospital stay Primary care physician - Vikram Maddox M.D.
[2018-06-24] MEDS ORDERED: Morphine 10 MG/0.5 ML Oral Syringe PO PRN (20:11)
[2018-06-24] MEDS ORDERED: Albuterol 0.083% 2.5 MG/3 ML Neb Soln NEB PRN (20:11)
[2018-06-24] MEDS ORDERED: LORazepam 0.5 MG Tab PO PRN (20:11)
[2018-06-24] MEDS ORDERED: Acetaminophen 325 MG Tab PO PRN (20:11)
[2018-06-24] MEDS ORDERED: Ondansetron 4 MG Tab.DIS PO PRN (20:11)
[2018-06-24] MEDS ORDERED: Nicotine 21 MG/24 Hr Patch TRDERM ONE (20:30)
[2018-06-24] MEDS: Nicotine 21 MG/24 Hr Patch TRDERM SCH (22:07)
[2018-06-25] MEDS: Tiotropium Inhaler 18 MCG Inhalation Powder Cap Kit of 5 INH SCH (08:52)
[2018-06-25] MEDS: Formoterol/Mometasone 200-5 MCG 8.8 GM Inhaler IH SCH ×4 (08:53→21:03)
[2018-06-25] MEDS: Nicotine 21 MG/24 Hr Patch TRDERM SCH (10:32)
[2018-06-25] MEDS: Furosemide 20 MG Tab PO SCH (11:46)
--- NOTE | 2018-06-25 14:33 | PCM.PN ---
- General Info Date of Service: 06/25/18 Subjective Update: Ms. Leiva has remained fairly stable since admission, oxygenation is adequate and she has remained afebrile. She is more alert and interactive today, is willing to proceed with custodial placement. Functional Status: Reports: Pain Controlled, Urinating - Review of Systems General: Reports: Weakness. Denies: Fever, Chills Pulmonary: Reports: Shortness of Breath. Denies: Pleuritic Chest Pain, Cough, Sputum, Hemoptysis, Wheezing Cardiovascular: Reports: Dyspnea on Exertion, Edema. Denies: Chest Pain, Palpitations, Orthopnea, PND Gastrointestinal: Reports: No Symptoms - Patient Data Vitals - Most Recent: Last Vital Signs Temp 97.0 F 06/25/18 10:59 Pulse 118 H 06/25/18 10:59 Resp 18 06/25/18 10:59 BP 97/56 L 06/25/18 10:59 Pulse Ox 86 L 06/25/18 10:59 Weight - Most Recent: 109 lb 15.994 oz I&O - Last 24 Hours: Intake & Output 06/24/18 06/25/18 06/25/18 22:59 06:59 14:59 Intake Total 100 240 Balance 100 240 Med Orders - Current: Current Medications Acetaminophen (Tylenol) 650 mg PO Q4H PRN PRN Reason: Pain (Mild 1-3)/fever Last Admin: 06/25/18 13:33 Dose: 650 mg Albuterol (Proventil Neb Soln) 2.5 mg NEB Q4H PRN PRN Reason: sob Furosemide (Lasix) 20 mg PO DAILY [facility] Last Admin: 06/25/18 11:46 Dose: 20 mg Lorazepam (Ativan) 0.5 mg PO Q4H PRN PRN Reason: Anxiety Mometasone Furoate/Formoterol Fumar (Dulera 200-5 Mcg) 2 puff IH BIDRT [facility] Last Admin: 06/25/18 11:03 Dose: 2 puff Morphine Sulfate (Morphine 10 Mg/0.5 Ml Oral Syringe) 5 mg PO Q4H PRN PRN Reason: air hunger Nicotine (Habitrol) 21 mg TRDERM DAILY [facility] Last Admin: 06/25/18 10:32 Dose: Not Given Ondansetron HCl (Zofran Odt) 4 mg PO Q6H PRN PRN Reason: Nausea able to take PO Senna/Docusate Sodium (Senna Plus) 1 tab PO BID PRN PRN Reason: Constipation Tiotropium [place] (Spiriva Handihaler) 18 mcg INH DAILYRT [facility] Last Admin: 06/25/18 08:52 Dose: 18 mcg Discontinued Medications Nicotine (Habitrol) 21 mg TRDERM ONETIME ONE Stop: 06/24/18 20:31 Last Admin: 06/24/18 22:07 Dose: Not Given - Exam Quality Assessment: Supplemental Oxygen, DVT Prophylaxis General: Alert, Oriented, Cooperative, Mild Distress Lungs: Clear to Auscultation, Normal Respiratory Effort, Decreased Breath Sounds. No: Wheezing Cardiovascular: Regular Rate, Regular Rhythm, No Murmurs GI/Abdominal Exam: Soft, Non-Tender, No Organomegaly, No Distention Extremities: Non-Tender, Pedal Edema - Problem List Review Problem List Initiated/Reviewed/Updated: Yes - Plan Plan:: ASSESSMENT AND PLAN - Encounter for palliative care - patient has been completely noncompliant with recommended medical treatment including medications, follow-up and oxygen at home. She has had severe damage to lungs and heart because of her noncompliance. Her brother is the power of privacy attorney and the decision has been made for her to transition to comfort cares. Family is unable to provide care for her anymore at home. The hope is that she can be admitted to the custodial with hospice and comfort cares. The patient reports understanding that not receiving treatment for the conditions listed below will likely lead to her in the near future. -Competency evaluation tomorrow -Morphine for air hunger -Lorazepam for anxiety Severe systolic congestive heart failure, NYHA class IV - symptoms at rest and severe with any exertion. Known ejection fraction less than 15% from recent hospital visit to [place] in [place]. -Continue diuretic if patient will allow Severe COPD with emphysema - Complicated by chronic respiratory failure including hypoxia and hypercapnia. Her oxygen saturations in the 60s on arrival and most recent PCO2 at [place] was greater than 90. Patient will not wear any supplemental oxygen. -Tiotropium -Nebs as needed Tobacco dependence - No interest in quitting. Nicotine patch will be offered. Maintenance issues - - DVT prophylaxis - Comfort cares - GI prophylaxis - Comfort cares - Nutrition - low sodium - Camejo catheter - not indicated CODE STATUS - DNI/DNR with comfort cares Admission justification - patient will be referred observation for custodial placement Disposition - I would anticipate discharge to the custodial after the hospital stay Primary care physician Ngozi Sue
[2018-06-26] MEDS: Formoterol/Mometasone 200-5 MCG 8.8 GM Inhaler IH SCH (07:20)
[2018-06-26] MEDS: Tiotropium Inhaler 18 MCG Inhalation Powder Cap Kit of 5 INH SCH (07:21)
[2018-06-26] MEDS: Nicotine 21 MG/24 Hr Patch TRDERM SCH (09:13)
[2018-06-26] MEDS: Furosemide 20 MG Tab PO SCH (09:13)
[2018-06-26 09:17] VITALS: BP 104/68
--- NOTE | 2018-06-26 12:25 | PCM.DCSUM1 ---
Discharge Summary - Hospital Course Brief History: Ms. Leiva is a 58-year-old woman admitted through the emergency department observation status for palliative care. History of progressive respiratory cardiac failure secondary to severe congestive heart failure and end -stage COPD. - Discharge Data Discharge Date: 06/26/18 Discharge Disposition: DC/Tfer to Hospice-Med Fac [facility] Condition: Poor - Discharge Diagnosis/Problem(s) (1) Acute on chronic respiratory failure with hypoxia and hypercapnia SNOMED Code(s): 63879594423975 ICD Code: J96.21 - ACUTE AND CHRONIC RESPIRATORY FAILURE WITH HYPOXIA; J96.22 - ACUTE AND CHRONIC RESPIRATORY FAILURE WITH HYPERCAPNIA Status: Acute Current Visit: Yes (2) Systolic congestive heart failure, NYHA class 4 SNOMED Code(s): 529049163, 484664993, 275669284 ICD Code: I50.20 - UNSPECIFIED SYSTOLIC (CONGESTIVE) HEART FAILURE Status: Acute Current Visit: Yes Qualifiers: Congestive heart failure chronicity: chronic Qualified Code(s): I50.22 - Chronic systolic (congestive) heart failure (3) COPD (chronic obstructive pulmonary disease) SNOMED Code(s): 53971483 ICD Code: J44.9 - CHRONIC OBSTRUCTIVE PULMONARY DISEASE, UNSPECIFIED Status : Chronic Current Visit: Yes Qualifiers: COPD type: emphysema Emphysema type: unspecified Qualified Code(s): J43.9 - Emphysema, unspecified (4) Schizo affective schizophrenia SNOMED Code(s): 970957244 ICD Code: F25.0 - SCHIZOAFFECTIVE DISORDER, BIPOLAR TYPE Status: Chronic Current Visit: Yes (5) Palliative care status SNOMED Code(s): 957721518 ICD Code: Z51.5 - ENCOUNTER FOR PALLIATIVE CARE Status: Acute Current Visit: Yes - Patient Summary/Data Hospital Course: Nicki presents to the emergency room with her mother and sister. The patient does intermittently respond to questions but for the most part ignores questioning. She has been living at home alone and has not been taking medications or using oxygen as has been previously recommended. She has had multiple admissions to the hospital over the past year and often ends up in the intensive care unit.. She has severe oxygen dependent COPD but refuses to use oxygen. Her most recent PCO2 measurement was greater than 90. She has severe systolic congestive heart failure with an ejection fraction of less than 15%. She does not regularly take her medications. She does not eat. She sits at home and smokes. She is not able to make her own decisions at this time and does have a power of personal injury attorney. Family has elected to transition to comfort cares. They are not able to provide sufficient care at home. The hope is that she can be admitted for [facility]ci placement and comfort cares. Patient currently reports that she feels short of breath and tired. She has no she's had any fevers. She doesn't report chest pain or abdominal pain. No workup was undertaken and the emergency room because of the desire for palliative care. The patient will be admitted for observation. On admission she was placed on comfort cares only, morphine and lorazepam were used as needed through her hospital stay for management of comfort. Consult was obtained with Dr. Calvert for psychological assessment of competency. After evaluation Dr. Calvert felt that Nicki was not competent to make her own medical decisions. I did discuss these findings with the patient's power of personal injury attorney, her brother Juan M. She will be discharged to the [facility]ci on comfort cares only, with hospice admission after discharge. - Patient Instructions Diet: Low Sodium Activity: As Tolerated - Discharge Plan *PRESCRIPTION DRUG MONITORING PROGRAM REVIEWED*: Not Applicable Prescriptions/Med Rec: LORazepam [LORazepam Intensol] 0.5 mg BUCCAL Q2H #15 ml Morphine [Morphine 10 MG/0.5 ML Oral Syringe] 5 mg PO Q1H PRN #15 ml PRN Reason: Dyspnea Home Medications: Home Meds Albuterol Sulfate 3 ml NEB Q4H PRN 03/22/17 [History] Albuterol Sulfate [Ventolin Hfa] 1 - 2 puff INH Q4H PRN 03/22/17 [History] Furosemide 1 tab PO DAILY PRN 03/22/17 [History] Mometasone/Formoterol [Dulera 200-5 MCG] 2 puff INH BID 03/22/17 [History] Tiotropium [Spiriva Handihaler] 1 cap INH DAILY 03/22/17 [History] LORazepam [LORazepam Intensol] 0.5 mg BUCCAL Q2H #15 ml 06/26/18 [Rx] Morphine [Morphine 10 MG/0.5 ML Oral Syringe] 5 mg PO Q1H PRN #15 ml 06/26/18 [ Rx] Oxygen Therapy Mode: Nasal Cannula Patient Handouts: Chronic Respiratory Failure, Heart Failure, [id number] - Discharge Summary/Plan Comment DC Time >30 min.: No - Patient Data Vitals - Most Recent: Last Vital Signs Temp 97.5 F 06/26/18 09:14 Pulse 126 H 06/26/18 09:14 Resp 22 H 06/26/18 09:14 BP 104/68 06/26/18 09:14 Pulse Ox 47 L 06/26/18 09:14 Weight - Most Recent: 109 lb 15.994 oz I&O - Last 24 hours: Intake & Output 06/25/18 06/26/18 06/26/18 22:59 06:59 14:59 Intake Total 300 60 Balance 300 60 Med Orders - Current: Current Medications Acetaminophen (Tylenol) 650 mg PO Q4H PRN PRN Reason: Pain (Mild 1-3)/fever Last Admin: 06/25/18 13:33 Dose: 650 mg Albuterol (Proventil Neb Soln) 2.5 mg NEB Q4H PRN PRN Reason: sob Furosemide (Lasix) 20 mg PO DAILY [facility] Last Admin: 06/26/18 09:13 Dose: 20 mg Lorazepam (Ativan) 0.5 mg PO Q4H PRN PRN Reason: Anxiety Mometasone Furoate/Formoterol Fumar (Dulera 200-5 Mcg) 2 puff IH BIDRT [facility] Last Admin: 06/26/18 07:20 Dose: 2 puff Morphine Sulfate (Morphine 10 Mg/0.5 Ml Oral Syringe) 5 mg PO Q4H PRN PRN Reason: air hunger Nicotine (Habitrol) 21 mg TRDERM DAILY [facility] Last Admin: 06/26/18 09:13 Dose: Not Given Ondansetron HCl (Zofran Odt) 4 mg PO Q6H PRN PRN Reason: Nausea able to take PO Senna/Docusate Sodium (Senna Plus) 1 tab PO BID PRN PRN Reason: Constipation Tiotropium [place] (Spiriva Handihaler) 18 mcg INH [facility]ILYRT [facility] Last Admin: 06/26/18 07:21 Dose: 18 mcg Discontinued Medications Nicotine (Habitrol) 21 mg TRDERM ONETIME ONE Stop: 06/24/18 20:31 Last Admin: 06/24/18 22:07 Dose: Not Given - Exam Quality Assessment: Reports: Supplemental Oxygen General: Reports: Alert, Cooperative, Mild Distress Lungs: Reports: Decreased Breath Sounds, Wheezing. Denies: Rales, Rhonchi, Rub Cardiovascular: Reports: Regular Rhythm, No Murmurs, Tachycardia GI/Abdominal Exam: Soft, Non-Tender, No Organomegaly, No Distention Extremities: Non-Tender, Pedal Edema
== END 2018-06-26 13:15 | disposition hospice, inpatient (51) ==
LOC: JP.ED 13:07 → JP.MS 18:55
PROVIDERS: ADMIT Internal Medicine; ATTEND Hospitalist
DX: Z51.5 Encounter for palliative care (principal); I50.22 Chronic systolic (congestive) heart failure; J43.1 Panlobular emphysema; J96.22 Acute and chronic respiratory failure with hypercapnia; J96.21 Acute and chronic respiratory failure with hypoxia; F17.200 Nicotine dependence, unspecified, uncomplicated; F25.0 Schizoaffective disorder, bipolar type
CPT/HCPCS: 94640; 99285; A9270; G0378

== ENCOUNTER 2023-02-18 15:05 | Inpatient (IN) | payer MEDICAID ==
[2023-02-18] MEDS ORDERED: Albuterol/Ipratropium 3.0-0.5 MG/3 ML Neb Soln NEB ONE (15:15)
[2023-02-18 15:21] LABS: APPEARANCE,URINE SLIGHTLY CLOUDY (CLEAR); BILIRUBIN,URINE SMALL (NEGATIVE); COLOR,URINE YELLOW (YELLOW); GLUCOSE,URINE NEGATIVE (NEGATIVE); KETONES,URINE TRACE mg/dL (NEGATIVE); LEUKOCYTE ESTERASE,URINE NEGATIVE (NEGATIVE); NITRITE,URINE NEGATIVE (NEGATIVE); OCCULT BLOOD,URINE NEGATIVE (NEGATIVE); PH,URINE 7.5 (5.0-8.0); PROTEIN,URINE 100 mg/dL (NEGATIVE)
[2023-02-18 15:24] LABS: BASOPHILS ABSOLUTE AUTO 0.03 K/uL (0.00-0.10); BASOPHILS PERCENT AUTO 0.4 % (0.1-1.3); EOSINOPHILS ABSOLUTE AUTO 0.05 K/uL (0.00-0.40); EOSINOPHILS PERCENT AUTO 0.7 % (0.0-5.4); HEMATOCRIT 40.5 % (34.3-46.0); HEMOGLOBIN 11.8 g/dL (11.2-15.5); IMMATURE GRAN PERCENT AUTO 0.3 % (0.0-0.7); LYMPHOCYTES PERCENT AUTO 6.9 % (11.4-47.7); MEAN CORPUSCULAR HEMOGLOBIN 27.6 pg (31.6-35.5); MEAN CORPUSCULAR HGB CONC 29.1 g/dL (31.6-35.5); MEAN CORPUSCULAR VOLUME 94.6 fL (81.4-99.0); MONOCYTES PERCENT AUTO 8.3 % (3.3-12.6); NEUTROPHILS ABSOLUTE AUTO 6.04 K/uL (1.0-7.6); NEUTROPHILS PERCENT AUTO 83.4 % (40.0-78.1); PLATELET COUNT,PLT 251 K/uL (130-375); RED BLOOD CELL COUNT 4.28 M/uL (3.77-5.24); WHITE BLOOD CELL COUNT,WBC 7.2 K/uL (3.2-11.0)
[2023-02-18 15:25] LABS: BASE EXCESS VENOUS 13.7 mm/L; METHEMOGLOBIN 0.7 %; O2 SATURATION VENOUS 88.2; OXYHEMOGLOBIN 84.9 %; PCO2 VENOUS 75.5 mm/Hg; PH,VENOUS 7.364 (7.350-7.450); PO2 VENOUS 57.2 mm/Hg; TOTAL HEMOGLOBIN 12.1 g/dL (12.0-16.0)
[2023-02-18 15:31] LABS: IMMATURE GRAN ABSOLUTE AUTO 0.02 K/uL (0.00-0.23)
[2023-02-18 15:33] LABS: AMORPHOUS SEDIMENT,URINE NOT SEEN; BACTERIA,URINE MODERATE; EPITHELIAL CELLS,URINE FEW; MUCUS,URINE MODERATE; RBC,URINE 0-5 (0-5)
[2023-02-18] MEDS: Sodium Chloride 0.9% 1,000 ML IV SCH ×2 (15:35→15:44)
[2023-02-18] MEDS: Furosemide 40 MG/4 ML VIAL IVPUSH ONE ×2 (15:35→15:44)
[2023-02-18 15:46] LABS: INR 0.9; PROTHROMBIN TIME 9.4 sec (9.2-10.6)
[2023-02-18 16:00] LABS: A/G RATIO 0.8 (1.2-2.2); ALANINE AMINOTRANSFERASE,ALT 19 U/L (12-78); ALBUMIN 2.7 g/dL (3.4-5.0); ALKALINE PHOSPHATASE 70 U/L (46-116); ASPARTATE AMNIOTRANSFERASE,AST 13 U/L (15-37); BILIRUBIN TOTAL 0.2 mg/dL (0.2-1.0); BLOOD UREA NITROGEN,BUN 16 mg/dL (7-18); CALCIUM 9.3 mg/dL (8.5-10.1); CARBON DIOXIDE,CO2 43 mmol/L (21-32); CHLORIDE,CL 98 mmol/L (100-108); CREATININE 0.5 mg/dL (0.6-1.0); EST CRCL DRUG DOSING (CG) 93.45 mL/min; ESTIMATED GFR 107 mL/min (>60); GLUCOSE RANDOM 124 mg/dL (74-106); POTASSIUM,K 3.8 mmol/L (3.6-5.2); PRO B-TYPE NATRIUR PEPT,BNPPRO 219 pg/mL (5-125); PROTEIN TOTAL,TP 6.3 g/dL (6.4-8.2); SODIUM,NA 140 mmol/L (140-148)
[2023-02-18 16:01] LABS: ANION GAP 2.8 mmol/L (5.0-14.0)
[2023-02-18] MEDS ORDERED: methylPREDNISolone Sod Succ 250 MG in Dextrose 5% in Water 100 ML IV ONE ×2 (16:27)
[2023-02-18] MEDS ORDERED: Magnesium Sulfate/Water 2 GM in Premix Bag 1 BAG IV ONE (16:27)
[2023-02-18] MEDS ORDERED: Azithromycin 1,000 MG in Sodium Chloride 0.9% 500 ML IV ONE (17:17)
[2023-02-18] MEDS ORDERED: LORazepam 0.5 MG Tab PO ONE (18:24)
[2023-02-18] MEDS ORDERED: Albuterol 0.083% 2.5 MG/3 ML Neb Soln NEB PRN (19:35)
[2023-02-18] MEDS ORDERED: Ondansetron 4 MG/2 ML SDV IV PRN (19:35)
[2023-02-18] MEDS ORDERED: Acetaminophen 325 MG Tab PO PRN (19:35)
[2023-02-18] MEDS ORDERED: Sodium Chloride 0.9% 10 ML Syringe FLUSH PRN (19:35)
[2023-02-18] MEDS ORDERED: Polyethylene Glycol 3350 Powder 17 GM Packet PO PRN (19:35)
[2023-02-18] MEDS: Enoxaparin 40 MG/0.4 ML Syringe SUBCUT SCH (20:37)
[2023-02-18] MEDS: cefTRIAXone 1 GM in Sodium Chloride 0.9% 50 ML IV SCH (20:38)
[2023-02-18] MEDS ORDERED: Formoterol/Mometasone 200-5 MCG 8.8 GM Inhaler IH SCH (21:00)
[2023-02-18] MEDS: Doxycycline 100 MG in Sodium Chloride 0.9% 100 ML IV SCH (21:49)
[2023-02-18] MEDS: Albuterol/Ipratropium 3.0-0.5 MG/3 ML Neb Soln NEB SCH (21:50)
[2023-02-18] MEDS: LORazepam 0.5 MG Tab PO SCH (21:50)
[2023-02-18] MEDS: methylPREDNISolone Sodium Succinate 40 MG/1 ML SDV IVPUSH SCH (23:28)
[2023-02-19 04:11] LABS: HEMATOCRIT 39.3 % (34.3-46.0); HEMOGLOBIN 11.4 g/dL (11.2-15.5); MEAN CORPUSCULAR HEMOGLOBIN 27.3 pg (31.6-35.5); RED BLOOD CELL COUNT 4.18 M/uL (3.77-5.24); WHITE BLOOD CELL COUNT,WBC 4.4 K/uL (3.2-11.0)
[2023-02-19 04:31] LABS: CREATININE 0.4 mg/dL (0.6-1.0); EST CRCL DRUG DOSING (CG) 115.8 mL/min; MAGNESIUM 2.3 mg/dL (1.8-2.4); POTASSIUM,K 4.2 mmol/L (3.6-5.2)
[2023-02-19 05:22] LABS: ANION GAP 2.2 mmol/L (5.0-14.0); CALCIUM 8.9 mg/dL (8.5-10.1)
[2023-02-19] MEDS: LORazepam 0.5 MG Tab PO SCH ×4 (06:58→21:30)
[2023-02-19] MEDS: Albuterol/Ipratropium 3.0-0.5 MG/3 ML Neb Soln NEB SCH ×6 (07:21→21:28)
[2023-02-19] MEDS: Formoterol/Mometasone 200-5 MCG 8.8 GM Inhaler IH SCH ×2 (08:26→19:41)
[2023-02-19] MEDS: methylPREDNISolone Sodium Succinate 40 MG/1 ML SDV IVPUSH SCH ×3 (09:00→23:00)
[2023-02-19] MEDS: Doxycycline 100 MG in Sodium Chloride 0.9% 100 ML IV SCH ×2 (09:11→19:59)
[2023-02-19] MEDS ORDERED: Furosemide 20 MG/2 ML VIAL IVPUSH ONE (10:00)
[2023-02-19] MEDS: Enoxaparin 40 MG/0.4 ML Syringe SUBCUT SCH (10:07)
[2023-02-19] MEDS ORDERED: Albuterol 6.7 GM Inhaler INH PRN (14:37)
[2023-02-19] MEDS: cefTRIAXone 1 GM in Sodium Chloride 0.9% 50 ML IV SCH (19:42)
[2023-02-20] MEDS: Albuterol/Ipratropium 3.0-0.5 MG/3 ML Neb Soln NEB SCH ×2 (02:56→09:08)
[2023-02-20] MEDS: LORazepam 0.5 MG Tab PO SCH ×4 (05:17→22:11)
[2023-02-20 05:32] LABS: CALCIUM 9.6 mg/dL (8.5-10.1); CREATININE 0.5 mg/dL (0.6-1.0); EST CRCL DRUG DOSING (CG) 92.64 mL/min; POTASSIUM,K 3.9 mmol/L (3.6-5.2)
[2023-02-20 05:33] LABS: ANION GAP 6.9 mmol/L (5.0-14.0)
[2023-02-20] MEDS: Formoterol/Mometasone 200-5 MCG 8.8 GM Inhaler IH SCH ×2 (08:11→20:10)
[2023-02-20] MEDS: Enoxaparin 40 MG/0.4 ML Syringe SUBCUT SCH (09:58)
[2023-02-20] MEDS ORDERED: Ondansetron 4 MG Tab.DIS PO PRN (10:03)
[2023-02-20] MEDS ORDERED: predniSONE 20 MG Tab PO ONE (10:30)
[2023-02-20] MEDS ORDERED: IPRATROPIUM INH SCH (11:00)
[2023-02-20] MEDS: Furosemide 20 MG Tab PO SCH (11:31)
[2023-02-20] MEDS: Doxycycline 100 MG Cap PO SCH ×2 (11:32→20:11)
[2023-02-20] MEDS: Doxycycline 100 MG in Sodium Chloride 0.9% 100 ML IV SCH (12:17)
[2023-02-20] MEDS: methylPREDNISolone Sodium Succinate 40 MG/1 ML SDV IVPUSH SCH (12:17)
[2023-02-20] MEDS: IPRATROPIUM INH SCH ×2 (17:05→22:11)
[2023-02-20] MEDS: Cefdinir 300 MG Cap PO SCH (20:11)
[2023-02-20] MEDS ORDERED: Doxycycline 100 MG Cap PO SCH (21:00)
[2023-02-21] MEDS: IPRATROPIUM INH SCH ×4 (05:32→22:38)
[2023-02-21] MEDS: LORazepam 0.5 MG Tab PO SCH ×4 (05:32→22:38)
[2023-02-21] MEDS: Formoterol/Mometasone 200-5 MCG 8.8 GM Inhaler IH SCH ×2 (08:12→20:13)
[2023-02-21] MEDS: Furosemide 20 MG Tab PO SCH (08:13)
[2023-02-21] MEDS: Doxycycline 100 MG Cap PO SCH ×2 (08:13→20:13)
[2023-02-21] MEDS: predniSONE 20 MG Tab PO SCH (08:14)
[2023-02-21] MEDS: Cefdinir 300 MG Cap PO SCH ×2 (08:14→20:14)
[2023-02-21] MEDS: Enoxaparin 40 MG/0.4 ML Syringe SUBCUT SCH (08:15)
[2023-02-21] MEDS ORDERED: Furosemide 20 MG Tab PO SCH (09:00)
[2023-02-22] MEDS: LORazepam 0.5 MG Tab PO SCH ×4 (05:49→23:00)
[2023-02-22] MEDS: IPRATROPIUM INH SCH ×4 (05:49→23:00)
[2023-02-22] MEDS: predniSONE 20 MG Tab PO SCH (08:20)
[2023-02-22] MEDS: Formoterol/Mometasone 200-5 MCG 8.8 GM Inhaler IH SCH ×2 (08:20→19:58)
[2023-02-22] MEDS: Furosemide 20 MG Tab PO SCH (08:21)
[2023-02-22] MEDS: Cefdinir 300 MG Cap PO SCH ×2 (08:21→19:59)
[2023-02-22] MEDS: Doxycycline 100 MG Cap PO SCH ×2 (08:21→19:59)
[2023-02-22] MEDS: Enoxaparin 40 MG/0.4 ML Syringe SUBCUT SCH (08:21)
[2023-02-23 05:08] VITALS: PULSE 75
[2023-02-23] MEDS: LORazepam 0.5 MG Tab PO SCH ×2 (05:30→11:21)
[2023-02-23] MEDS: IPRATROPIUM INH SCH ×2 (05:31→11:12)
[2023-02-23] MEDS: predniSONE 20 MG Tab PO SCH (08:23)
[2023-02-23] MEDS: Formoterol/Mometasone 200-5 MCG 8.8 GM Inhaler IH SCH (08:23)
[2023-02-23] MEDS: Doxycycline 100 MG Cap PO SCH (08:24)
[2023-02-23] MEDS: Cefdinir 300 MG Cap PO SCH (08:24)
[2023-02-23] MEDS: Furosemide 20 MG Tab PO SCH (08:24)
[2023-02-23] MEDS: Enoxaparin 40 MG/0.4 ML Syringe SUBCUT SCH (08:24)
[2023-02-23 11:26] VITALS: BP 120/69
== END 2023-02-23 12:39 | disposition home or self-care (01) | DRG 291 ==
LOC: JP.ED 15:05 → JP.ICU 17:26
PROVIDERS: ADMIT Hospitalist; ATTEND Internal Medicine
DX: I50.43 Acute on chronic combined systolic (congestive) and diastolic (congestive) heart failure (principal); J96.21 Acute and chronic respiratory failure with hypoxia; J96.22 Acute and chronic respiratory failure with hypercapnia; J43.1 Panlobular emphysema; F20.9 Schizophrenia, unspecified; F41.9 Anxiety disorder, unspecified; R91.8 Other nonspecific abnormal finding of lung field; Z88.8 Allergy status to other drugs, medicaments and biological substances; Z79.51 Long term (current) use of inhaled steroids; Z86.010 Personal history of colon polyps; Z98.890 Other specified postprocedural states; Z87.891 Personal history of nicotine dependence; Z99.81 Dependence on supplemental oxygen
CPT/HCPCS: 36415; 71046; 71046-26; 71250; 80048; 80053; 81001; 82803; 83605; 83735; 83880; 84145; 84484; 85025; 85027; 85379; 85610; 87040; 87086; 87088; 87186; 93005; 93306; 94640; 94667; 94668; 99223; 99232; 99233; 99238; A9270-GY; J0456; J0696; J1650; J1940; J2920; J2930; J3475; J3490; J7030; J7040; J7512; J7620; U0002

== ENCOUNTER 2023-11-26 08:09 | Inpatient (IN) | payer MEDICAID ==
[2023-11-26 08:28] LABS: BASOPHILS PERCENT AUTO 0.1 % (0.1-1.3); EOSINOPHILS ABSOLUTE AUTO 0.06 K/uL (0.00-0.40); EOSINOPHILS PERCENT AUTO 0.3 % (0.0-5.4); HEMATOCRIT 40.2 % (34.3-46.0); HEMOGLOBIN 10.6 g/dL (11.2-15.5); IMMATURE GRAN ABSOLUTE AUTO 0.11 K/uL (0.00-0.23); IMMATURE GRAN PERCENT AUTO 0.5 % (0.0-0.7); LYMPHOCYTES ABSOLUTE AUTO 2.25 K/uL (0.8-3.3); LYMPHOCYTES PERCENT AUTO 11.1 % (11.4-47.7); MEAN CORPUSCULAR HEMOGLOBIN 19.9 pg (31.6-35.5); MEAN CORPUSCULAR HGB CONC 26.4 g/dL (31.6-35.5); MEAN CORPUSCULAR VOLUME 75.4 fL (81.4-99.0); MONOCYTES ABSOLUTE AUTO 1.99 K/uL (0.20-0.90); MONOCYTES PERCENT AUTO 9.8 % (3.3-12.6); NEUTROPHILS ABSOLUTE AUTO 15.86 K/uL (1.0-7.6); NEUTROPHILS PERCENT AUTO 78.2 % (40.0-78.1); PLATELET COUNT,PLT 446 K/uL (130-375); RED BLOOD CELL COUNT 5.33 M/uL (3.77-5.24); WHITE BLOOD CELL COUNT,WBC 20.3 K/uL (3.2-11.0)
[2023-11-26 08:29] LABS: BASOPHILS ABSOLUTE AUTO 0.02 K/uL (0.00-0.10)
[2023-11-26] MEDS: Sodium Chloride 0.9% 1,000 ML IV ONE (08:45)
[2023-11-26 08:48] LABS: A/G RATIO 0.4 (1.2-2.2); ALANINE AMINOTRANSFERASE,ALT 19 U/L (12-78); ALBUMIN 1.8 g/dL (3.4-5.0); ALKALINE PHOSPHATASE 184 U/L (46-116); ASPARTATE AMNIOTRANSFERASE,AST 38 U/L (15-37); BILIRUBIN TOTAL 0.6 mg/dL (0.2-1.0); BLOOD UREA NITROGEN,BUN 11 mg/dL (7-18); C-REACTIVE PROTEIN 12.44 mg/dL (<0.50); CALCIUM 9.7 mg/dL (8.5-10.1); CARBON DIOXIDE,CO2 43 mmol/L (21-32); CHLORIDE,CL 87 mmol/L (100-108); CREATININE 0.4 mg/dL (0.6-1.0); EST CRCL DRUG DOSING (CG) 110.04 mL/min; ESTIMATED GFR 112 mL/min (>60); GLUCOSE RANDOM 115 mg/dL (74-106); MAGNESIUM 1.9 mg/dL (1.8-2.4); PHOSPHORUS 2.8 mg/dL (2.5-4.9); POTASSIUM,K 4.4 mmol/L (3.6-5.2); PROTEIN TOTAL,TP 5.9 g/dL (6.4-8.2); SODIUM,NA 128 mmol/L (140-148)
[2023-11-26 08:49] LABS: ANION GAP 2.4 mmol/L (5.0-14.0)
[2023-11-26] MEDS ORDERED: Naloxone 0.4 MG/ML SDV IVPUSH PRN (09:22)
[2023-11-26] MEDS ORDERED: Albumin Human 50 GM in Premix Bag 1 BAG IV ONE (09:31)
[2023-11-26] MEDS: Albuterol/Ipratropium 3.0-0.5 MG/3 ML Neb Soln NEB ONE (09:49)
[2023-11-26] MEDS: Morphine 2 MG/ML SYRINGE IVPUSH ONE (09:52)
[2023-11-26] MEDS: Amiodarone 150 MG/3 ML SDV IVPUSH ONE (09:55)
[2023-11-26] MEDS: Magnesium Sulfate/Water 2 GM in Premix Bag 1 BAG IV ONE (09:58)
[2023-11-26] MEDS ORDERED: Vancomycin 1 GM SDV IV SCH (10:00)
[2023-11-26] MEDS: Piperacillin/Tazobactam 3.375 GM in Sodium Chloride 0.9% 50 ML IV SCH (10:03)
[2023-11-26] MEDS: Albumin Human 25 GM in Premix Bag 1 BAG IV SCH (11:04)
[2023-11-26 11:22] LABS: APPEARANCE,URINE SLIGHTLY CLOUDY (CLEAR); BILIRUBIN,URINE SMALL (NEGATIVE); COLOR,URINE ORANGE (YELLOW); GLUCOSE,URINE NEGATIVE (NEGATIVE); KETONES,URINE 15 mg/dL (NEGATIVE); LEUKOCYTE ESTERASE,URINE NEGATIVE (NEGATIVE); NITRITE,URINE NEGATIVE (NEGATIVE); OCCULT BLOOD,URINE NEGATIVE (NEGATIVE); PROTEIN,URINE 100 mg/dL (NEGATIVE)
[2023-11-26 11:28] LABS: AMORPHOUS SEDIMENT,URINE MODERATE; BACTERIA,URINE MODERATE; EPITHELIAL CELLS,URINE MODERATE; MUCUS,URINE RARE; RBC,URINE 0-5 (0-5); WBC,URINE 0-5 (0-5)
[2023-11-26] MEDS ORDERED: Sennosides/Docusate Sodium 50-8.6 MG Tab PO PRN (14:33)
[2023-11-26] MEDS ORDERED: Zolpidem 5 MG Tab PO PRN (14:33)
[2023-11-26] MEDS ORDERED: Ondansetron 4 MG Tab.DIS PO PRN (14:33)
[2023-11-26] MEDS ORDERED: Albuterol 0.083% 2.5 MG/3 ML Neb Soln NEB PRN (14:33)
[2023-11-26] MEDS ORDERED: Acetaminophen 325 MG Tab PO PRN (14:33)
[2023-11-26] MEDS ORDERED: Benzonatate 100 MG Cap PO PRN (14:43)
[2023-11-26] MEDS ORDERED: Norepinephrine Bit/D5W Premix 4 MG in Premix Bag 1 BAG IV SCH (15:00)
[2023-11-26] MEDS: Piperacillin/Tazobactam/Dext 4.5 GM in Premix Bag 1 BAG IV SCH (16:18)
[2023-11-26] MEDS: Albuterol/Ipratropium 3.0-0.5 MG/3 ML Neb Soln NEB SCH (16:19)
[2023-11-26] MEDS: guaiFENesin 600 MG Tab.ER PO SCH (21:10)
[2023-11-27 05:25] LABS: HEMATOCRIT 33.8 % (34.3-46.0); HEMOGLOBIN 8.7 g/dL (11.2-15.5); MEAN CORPUSCULAR VOLUME 77.5 fL (81.4-99.0); RED BLOOD CELL COUNT 4.36 M/uL (3.77-5.24); WHITE BLOOD CELL COUNT,WBC 23.4 K/uL (3.2-11.0)
[2023-11-27 05:36] LABS: MEAN CORPUSCULAR HGB CONC 25.7 g/dL (31.6-35.5)
[2023-11-27 05:56] LABS: CREATININE 0.7 mg/dL (0.6-1.0); EST CRCL DRUG DOSING (CG) 68.93 mL/min; MAGNESIUM 2.4 mg/dL (1.8-2.4); PHOSPHORUS 4.9 mg/dL (2.5-4.9); POTASSIUM,K 3.8 mmol/L (3.6-5.2)
[2023-11-27 06:05] LABS: ANION GAP 9.8 mmol/L (5.0-14.0)
[2023-11-27] MEDS: Pantoprazole 40 MG Tab.CR PO SCH (07:31)
[2023-11-27] MEDS: Enoxaparin 40 MG/0.4 ML Syringe SUBCUT SCH (08:46)
[2023-11-28 05:56] LABS: CREATININE 1.4 mg/dL (0.6-1.0); EST CRCL DRUG DOSING (CG) 34.45 mL/min
[2023-11-28] MEDS: Morphine 10 MG/0.5 ML Oral Syringe PO PRN (11:05)
[2023-11-28 12:39] VITALS: BP 88/31; PULSE 94
== END 2023-11-28 13:11 | disposition hospice, inpatient (51) | DRG 189 ==
LOC: JP.ED 08:09 → EEVIPCON 14:33 → JP.ICU 14:33
PROVIDERS: ADMIT Internal Medicine; ATTEND Internal Medicine
DX: J96.21 Acute and chronic respiratory failure with hypoxia (principal); E43 Unspecified severe protein-calorie malnutrition; J44.1 Chronic obstructive pulmonary disease with (acute) exacerbation; R64 Cachexia; E87.1 Hypo-osmolality and hyponatremia; R91.8 Other nonspecific abnormal finding of lung field; I50.9 Heart failure, unspecified; Z66 Do not resuscitate; J43.9 Emphysema, unspecified; F41.9 Anxiety disorder, unspecified; E88.09 Other disorders of plasma-protein metabolism, not elsewhere classified; Z91.018 Allergy to other foods; Z88.1 Allergy status to other antibiotic agents; Z79.51 Long term (current) use of inhaled steroids; Z79.899 Other long term (current) drug therapy; Z86.010 Personal history of colon polyps; Z98.891 History of uterine scar from previous surgery; Z87.891 Personal history of nicotine dependence; Z68.22 Body mass index [BMI] 22.0-22.9, adult; Z99.81 Dependence on supplemental oxygen
CPT/HCPCS: 36415; 71045; 71045-26; 80048; 80053; 80202; 81001; 82565; 83605; 83735; 83880; 84100; 84443; 84484; 85025; 85027; 86140; 87040; 87077; 87086; 87186; 93005; 94640; 96361; 96365; 96366; 96367; 96368; 96375; 96376; 99222; 99232; 99239; 99285-25; A9270-GY; J0282; J1650; J2270; J2543; J3370; J3475; J3490; J7030; J7050; J7620; P9047